=== PATIENT | male | born 1955 | race Caucasian/White ===

== ENCOUNTER 2022-12-13 08:17 | Outpatient (CLI) | payer OTHER ==
[~2022-12-13 08:17] MED LIST: NABUMETONE500 MG PO; PERCOCET 5/3251 TAB PO
== END 2022-12-13 08:30 | disposition home or self-care (01) ==
LOC: SONOGRAMA 08:17
PROVIDERS: ATTEND Orthopaedic Surgery
DX: S83.200A Bucket-handle tear of unspecified meniscus, current injury, right knee, initial encounter (principal); S83.201A Bucket-handle tear of unspecified meniscus, current injury, left knee, initial encounter; M25.561 Pain in right knee; M25.562 Pain in left knee
CPT/HCPCS: 73721